=== PATIENT | male | born 1970 | race Caucasian/White ===

== ENCOUNTER 2018-12-04 14:58 | Emergency (ER) | payer BC ==
[~2018-12-04] VITALS: Ht 190.5 cm; Wt 99.8 kg
[2018-12-04 15:06] VITALS: BP_SYST 135
[2018-12-04] MEDS ORDERED: ACETAMINOPHEN 500 MG TABLET PO ONE (15:30)
[2018-12-04] MEDS ORDERED: BACITRACIN 1 GM OINT TP ONE (15:30)
[2018-12-04 16:35] VITALS: BP_SYST 135
== END 2018-12-04 16:35 | disposition home or self-care (01) ==
LOC: SED 14:58
DX: S00.81XA Abrasion of other part of head, initial encounter (principal); R03.0 Elevated blood-pressure reading, without diagnosis of hypertension; W18.39XA Other fall on same level, initial encounter; Y93.01 Activity, walking, marching and hiking; Y92.89 Other specified places as the place of occurrence of the external cause; Y99.8 Other external cause status
CPT/HCPCS: 70450-TC; 70486-TC; 99284